=== PATIENT | male | born 1950 | race Caucasian/White ===

== ENCOUNTER 2018-02-28 11:09 | Day surgery (SDC) | payer OTHER, SELFPAY ==
--- NOTE | 2018-02-28 | PATH_ITS ---
[facility] Accession Number: [id number] . 01 Material submitted: . SIGMOID COLON POLYPS AT 18 . 02 Diagnosis: Sigmoid Colon Polyps at 18 cm, Biopsies: Serrated lesion, favor hyperplastic polyp. Additional levels through the block are noncontributory. MRV/03/04/2018 . 02 Electronically signed: . Anna Bettencourt MD, Pathologist NPI- [id number] . 01 Gross description: . Received in one formalin-filled container labeled with the patient's name and labeled sigmoid polyps at 18, are multiple extremely tiny less than 0.1 cm to 0.1 cm portions of tissue and mucoid material. The specimen is filtered, wrapped, and entirely submitted in one cassette. ([id number]) /FRR . 02 Pathologist provided ICD-10: K63.5 . 02 CPT . 575033 Performed at: 01 [facility] [address] [facility], [place], [place] [id number] MD Hermann Valencia MD Phone: [phone] Performed at: [address] [facility] [address] [place], [place] [id number] MD Ej Cervantes MD Phone: [phone]
[2018-02-28 11:37] VITALS: BP 148/65; PULSE 73; RESP 16; TEMP 36.9; O2SAT 97; BMI 28.8
[2018-02-28] MEDS: SODIUM CHLORIDE 0.9% 1,000 ML 200 ML IV (11:59)
--- NOTE | 2018-02-28 14:26 | PM.HP.1 ---
History of Present Illness Date Patient Seen: 02/28/18 Time Patient Seen: 14:26 Chief complaint: [id number] SCREENING COLONOSCOPY Narrative: 67-year-old male with personal history of colon polyps. Last colonoscopy was 5 years ago. He presents now for colorectal surveillance. On further history today he denies any recent gastrointestinal symptoms such as nausea, vomiting, abdominal pain, loss of appetite, unexplained weight loss, change in bowel habits, diarrhea, constipation, melena, hematochezia, or bright red blood per rectum. Patient History Medical History Cholecystitis with cholelithiasis (Acute) History of colon polyps (Acute) History of nephrolithiasis (Acute) Hypothyroidism (Acute) Sarcoidosis (Acute) Surgical History H/O lithotripsy (Acute) History of cholecystectomy (Acute) History of colonoscopy (Acute) Family & Social History Social History: household members spouse Meds Home Medications Medication Instructions Recorded Confirmed Type levothyroxine 50 mcg PO DAILY 02/28/18 02/28/18 History Allergies Allergy/AdvReac Type Severity Reaction Status Date / Time No Known Drug Allergies Allergy Verified 02/28/18 11:36 Review of Systems Review of Systems All systems reviewed & are unremarkable except as noted in HPI and below Exam Vital Signs (past 8 hours): - 02/28/18 11:37 Temperature 98.5 F Pulse Rate 73 Respiratory Rate 16 Blood Pressure 148/65 H Pulse Oximetry 97 Oxygen Delivery Method Room Air Narrative Exam Narrative: Well-nourished well-developed male in no acute distress. Alert oriented x3 Regular rate and rhythm. No wheezes Abdomen mildly obese but soft and nondistended. Nontender. No masses. Extremities no clubbing, cyanosis, or edema Objective Labs Labs: No recent laboratory or radiographic studies for review Assessment & Plan Plan: Assessment/Plan Narrative: 67-year-old male with personal history of colon polyps. He requires colorectal surveillance for such. Colonoscopy is currently recommended. Technical details of the procedure were explained. Risks, benefits, alternatives were discussed. Risks including but not limited to sedation, aspiration, bleeding, pain, missed lesion, incomplete examination, need for further radiographic studies, colonic perforation, need for major abdominal surgery, and all attendant risks of major surgery were explained in detail. All questions were answered to his satisfaction, and he voiced understanding. Consent was placed on the chart. We will proceed as above
--- NOTE | 2018-02-28 14:31 | PM.PREOP ---
Pre-operative Note Interval Note Pre-op Check: Yes History & Physical Reviewed by Physician, Yes Exam Performed and Yes History & Physical exam performed today by Physician Changes: No H&P completed within 30 days and has changed as indicated here:: Patient seen and examined today. History and physical examination documented and placed on the chart. Proceed with colonoscopy today as planned. ASA Class (for procedural sedation): I
[2018-02-28] MEDS: MIDAZOLAM 5 MG/5 ML VIAL IV (14:45)
[2018-02-28] MEDS: fentaNYL 250 MCG/5 ML INJ IV (14:46)
--- NOTE | 2018-02-28 14:57 | PM.OP.ENDO ---
Operative Date/Time/Diagnoses Date of procedure: 02/28/18 Time of procedure: 14:58 Pre-op diagnosis: Personal history colon polyps Post-op diagnosis: other (Sigmoid polyp) Procedure & Clinicians Study performed: 1. Sedation per surgeon 2. Colonoscopy with cold forceps polypectomy Same procedure as scheduled: Yes Indications: 67-year-old male with personal history colon polyps. Last colonoscopy was 5 years ago. He presents now for surveillance. Colonoscopy is once again recommended. Surgeon: Brendan Corey Procedure Notes SCOAP/Timeout: Yes Procedure in detail: After obtaining informed consent, the patient was brought to the GI suite and placed in the left lateral decubitus position on the examination table. After placement of appropriate monitors, the patient was given incremental doses of Versed and Fentanyl until an appropriate level of sedation was achieved. A time out was held per SCOAP protocol. A digital rectal examination was performed and did not reveal any masses or obstructing lesions. The colonoscope was gently passed into the patient's anus and the entire colon navigated to the level of the cecum with minimal difficulty. Once in the cecum, the scope was withdrawn being sure to go before and beyond all mucosal folds and prominences and get an excellent examination. The findings are noted above. At the level of the rectal vault, the scope was retroflexed and the internal anal canal was examined. The scope was straightened and air aspirated from the colon. The instrument was removed from the patient's body and the procedure was concluded. The patient was allowed to awaken from sedation without difficulty and taken to the post-anesthesia care unit in good condition. 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 Discharge home 2. Await biopsy results Follow up: as needed Disposition: PACU
[2018-02-28 15:00] VITALS: BP 122/67; PULSE 64; RESP 14; TEMP 36.5; O2SAT 95
[2018-02-28 15:05] VITALS: BP 120/69; PULSE 63; RESP 16; TEMP 36.6; O2SAT 95
[2018-02-28 15:10] VITALS: BP 120/68; PULSE 67; RESP 16; TEMP 36.6; O2SAT 96
[2018-02-28 15:15] VITALS: BP 130/75; PULSE 75; RESP 14; TEMP 37.2; O2SAT 97
== END 2018-02-28 15:25 | disposition home or self-care (01) ==
PROVIDERS: Family Provider Internal Medicine; PCP Internal Medicine; Visit Provider Surgery
PROC: 0DJD8ZZ Inspection of Lower Intestinal Tract, Via Natural or Artificial Opening Endoscopic (ICD-10-PCS; CPT 45378; principal; 2018-02-28 13:00)
DX: Z86.010 Personal history of colon polyps (principal); E03.9 Hypothyroidism, unspecified; D12.5 Benign neoplasm of sigmoid colon
CPT/HCPCS: 45380; 99152; 99153; J2250; J3010

== ENCOUNTER → 2019-12-29 21:22 | Outpatient (ROUT) | payer MEDICARE, SELFPAY ==
[2019-12-29 21:59] LABS: Hematocrit 45.6 % (41-53); Hemoglobin 15.6 g/dL (13.5-17.5); Mean Corpuscular HGB Conc 34.2 % (30-36); Mean Corpuscular Volume 96.5 fL (80-100); Platelet Count 93 X10^3/uL (150-400); Red Blood Cell Count 4.73 X10^6/uL (4.5-5.9); Red Cell Distribution Width 13.7 % (11.6-14.8); White Blood Cell Count 4.5 X10^3/uL (4.5-11.0)
[2019-12-29 22:50] LABS: TSH w/ Reflex to FT4 3.63 uIU/mL (0.47-4.68)
[2019-12-30 04:36] LABS: Alanine Aminotransferase 32 IU/L (<50); Albumin 3.6 g/dL (3.5-5.0); Alkaline Phosphatase 78 U/L (38-126); Aspartate Aminotransferase 48 IU/L (17-59); BUN Creatinine Ratio 19.3 (6-22); Bilirubin Total 1.8 mg/dL (0.2-1.3); Bilirubin Unconjugated 1.4 mg/dL (0.0-1.1); Blood Urea Nitrogen 16 mg/dL (9-20); Calcium 8.5 mg/dL (8.4-10.2); Carbon Dioxide 31 mmol/L (22-32); Chloride 102 mmol/L (98-107); Cholesterol 147 mg/dL (140-199); Estimated Glomerular Filt Rate > 60.0 mL/min (>60); Globulin 3.7 g/dL (1.7-4.1); Glucose 94 mg/dL (80-110); HDL Cholesterol 55 mg/dL (40-60); HEMOLYSIS < 15 (0-50); LDL Cholesterol Calculated 65 mg/dL (<100); Potassium 3.9 mmol/L (3.4-5.1); Sodium 138 mmol/L (137-145); Total Protein 7.3 g/dL (6.3-8.2); Triglycerides 134 mg/dL (35-150)
[2019-12-30 05:06] LABS: Prostate Specific Antigen 0.491 ng/mL (0.10-4.00)
== END ==
PROVIDERS: Family Provider Internal Medicine; PCP Internal Medicine; Visit Provider Internal Medicine
DX: Z00.00 Encounter for general adult medical examination without abnormal findings (principal); K74.69 Other cirrhosis of liver; N52.9 Male erectile dysfunction, unspecified; E03.9 Hypothyroidism, unspecified; I10 Essential (primary) hypertension; E78.2 Mixed hyperlipidemia
CPT/HCPCS: 80048; 80061; 80076; 84153; 84443; 85027

== ENCOUNTER → 2020-07-13 20:22 | Outpatient (ROUT) | payer MEDICARE, SELFPAY ==
[2020-07-13 20:32] LABS: Add Manual Diff / Slide Review NO; Basophils Absolute Auto 0 /uL (0-100); Basophils Percent Auto 0.8 % (0-2); Eosinophils Absolute Auto 300 /uL (0-450); Hematocrit 46.1 % (41-53); Hemoglobin 15.5 g/dL (13.5-17.5); Lymphocytes Absolute Auto 1200 /uL (1100-4500); Lymphocytes Percent Auto 30.1 % (25-40); Mean Corpuscular HGB Conc 33.7 % (30-36); Mean Corpuscular Hemoglobin 32.3 PG (26-34); Mean Corpuscular Volume 95.8 fL (80-100); Monocytes Absolute Auto 600 /uL (0-900); Monocytes Percent Auto 14.6 % (3-14); Neutrophils Absolute Auto 1900 /uL (1500-7000); Neutrophils Percent Auto 46.5 % (50-75); Platelet Count 98 X10^3/uL (150-400); Red Blood Cell Count 4.81 X10^6/uL (4.5-5.9)
[2020-07-13 20:41] LABS: INR 1.2 (0.9-1.3); Prothrombin Time 13.8 SECONDS (10.1-12.7)
[2020-07-13 20:44] LABS: PTT Partial Thromboplastin Tim 35 SECONDS (26.4-36.2)
[2020-07-13 20:45] LABS: Alanine Aminotransferase 33 IU/L (<50); Albumin 3.6 g/dL (3.5-5.0); Albumin Globulin Ratio 1.1 (1.0-2.8); Alkaline Phosphatase 94 U/L (38-126); Aspartate Aminotransferase 48 IU/L (17-59); BUN Creatinine Ratio 16.1 (6-22); Bilirubin Total 1.4 mg/dL (0.2-1.3); Blood Urea Nitrogen 14 mg/dL (9-20); Calcium 8.5 mg/dL (8.4-10.2); Carbon Dioxide 34 mmol/L (22-32); Chloride 100 mmol/L (98-107); Cholesterol 137 mg/dL (140-199); Estimated Glomerular Filt Rate > 60.0 mL/min (>60); Globulin 3.4 g/dL (1.7-4.1); Glucose 97 mg/dL (80-110); HDL Cholesterol 51 mg/dL (40-60); HEMOLYSIS < 15 (0-50); LDL Cholesterol Calculated 63 mg/dL (<100); Potassium 3.4 mmol/L (3.4-5.1); Sodium 139 mmol/L (137-145); Triglycerides 113 mg/dL (35-150)
== END ==
PROVIDERS: Family Provider Internal Medicine; PCP Internal Medicine; Visit Provider Internal Medicine
DX: K74.69 Other cirrhosis of liver (principal); E03.9 Hypothyroidism, unspecified; E78.2 Mixed hyperlipidemia
CPT/HCPCS: 80053; 80061; 84443; 85025; 85610; 85730

== ENCOUNTER → 2021-06-27 14:32 | Outpatient (CLI) | payer MEDICARE, SELFPAY ==
--- NOTE | 2021-06-27 14:35 | DI.ECHO.S_ITS ---
[facility] [facility]---------+ [facility] +---------+ : : [address] : : : : [id number] : : : : Phone: [phone]+ Echocardiogram Report + + :Name: CORRINE MENENDEZ Study Date: 06/27/2021 Height: 68 in : :[facility] ReadingLocation: Weight: 230 lb : : Gender: Male BSA: 2.2 m2 : :: 1950 Age: 70 yrs BP: 145/82 mmHg: :Reason For Study: AORTIC STENOSIS : :Ordering Physician: PEPE, : :TAMIKO Performed By: Cayla Palmer : :Referring: TAMIKO CANTU : + + Interpretation Summary 1) Normal left ventricular thickness, size, wall motion, and systolic function (EF 60-65%). 2) Normal right ventricular size and function. 3) Mild aortic stenosis present (valve area 1.5cm2, mean gradient 17mmHg, severity ratio 0.46). 4) Compared to the Echo done 10/16/2016, no significant change. Procedure: A two-dimensional transthoracic echocardiogram with color flow and Doppler was performed. The study quality was technically adequate. Comparison is made with the echocardiogram of 10/16/2016. The patient was in sinus rhythm with heart rates between 48-56 bpm during the exam. Left Ventricle: The left ventricle is normal in size and wall thickness. The ejection fraction is estimated to be 60-65%. Left ventricular systolic function appears normal without focal wall motion abnormalities. Right Ventricle: The right ventricle is normal in size and function. Atria: The left atrial size is normal. Right atrial size is normal. There is no Doppler evidence for an interatrial shunt. Mitral Valve: The mitral valve is normal in structure and function. There is mild mitral annular calcification. There is trace mitral regurgitation. Aortic Valve: There is moderate aortic valve sclerosis. There is mild aortic stenosis. The peak aortic velocity is 2.8 m/sec. The aortic valve mean gradient is 17 mmHg. The calculated aortic valve area is 1.5 cm2. No aortic regurgitation is present. Tricuspid Valve: The tricuspid valve is normal in structure and function. There is mild tricuspid regurgitation. Pulmonic Valve: The pulmonic valve is not well seen, but is grossly normal. There is no pulmonic valvular regurgitation. Great Vessels: The aortic root is normal size. The ascending aorta is at the upper limits of normal in size. The inferior vena cava was not well visualized. Pericardium/ Pleura There is no pericardial effusion. There is no pleural effusion. MMode/2D Measurements & Calculations LVIDd: 4.0 cm LVOT diam: 2.1 cm LVIDs: 2.6 cm Ao root diam: 3.3 cm FS: 35.6 % asc Aorta Diam: 3.7 cm IVSd: 1.1 cm LVPWd: 0.96 cm LV cardoza. diameter/BSA (cm/m^2): 1.8 LV sys. diameter/BSA (cm/m^2): 1.2 LA A2 area: 21.2 cm2 RA long axis: 5.1 cm LA A4 area: 19.4 cm2 RA area: 17.6 cm2 LA length (vol): 5.5 cm RA vol: 52.1 ml LA vol: 63.6 ml RA : 24.0 ml/m2 LA vol index: 29.3 ml/m2 RVD1 (basal): 3.9 cm TAPSE: 2.0 cm Doppler Measurements & Calculations Ao V2 max: 278.2 cm/sec LVOT Max Tima: 116.8 cm/sec Ao V2 mean: 189.6 cm/sec LV V1 max P.5 mmHg Ao max P.6 mmHg LV V1 VTI: 29.5 cm Ao mean P.1 mmHg LEV(I,D): 1.6 cm2 Ao V2 VTI: 63.9 cm LEV(V,D): 1.5 cm2 sev ratio: 0.46 LEV indexed to BSA (cm^2/m^2): 0.75 MV E max tima: 78.8 cm/sec TR max tima: 189.6 cm/sec MV A max tima: 87.2 cm/sec TR max P.4 mmHg MV E/A: 0.90 PA V2 max: 110.3 cm/sec Med Peak E' Tima: 5.8 cm/sec PA V2 mean: 72.7 cm/sec E/E' med: 13.7 PA mean P.5 mmHg Lat Peak E' Tima: 7.7 cm/sec PA pr(Accel): 24.2 mmHg E/E' lat: 10.2 E/e' average: 11.9 MV dec time: 0.35 sec SV(LVOT): 103.6 ml Reading Physician:05:04 PM
== END ==
PROVIDERS: Family Provider Internal Medicine; PCP Student in an Organized Health Care Education/Training Program; Referring Provider Internal Medicine; Visit Provider Internal Medicine
DX: I08.2 Rheumatic disorders of both aortic and tricuspid valves
CPT/HCPCS: 93306

== ENCOUNTER → 2022-03-17 12:43 | Outpatient (CLI) | payer MEDICARE, SELFPAY ==
[2022-03-17 13:19] LABS: Hematocrit 42.7 % (41-53); Hemoglobin 14.6 g/dL (13.5-17.5); Mean Corpuscular HGB Conc 34.2 % (30-36); Mean Corpuscular Hemoglobin 32.2 PG (26-34); Platelet Count 109 X10^3/uL (150-400); Red Blood Cell Count 4.54 X10^6/uL (4.5-5.9); Red Cell Distribution Width 14.5 % (11.6-14.8); White Blood Cell Count 4.1 X10^3/uL (4.5-11.0)
[2022-03-17 13:31] LABS: Alanine Aminotransferase 29 IU/L (<50); Albumin 3.4 g/dL (3.5-5.0); Albumin Globulin Ratio 0.9 (1.0-2.8); Alkaline Phosphatase 96 U/L (38-126); Aspartate Aminotransferase 42 IU/L (17-59); BUN Creatinine Ratio 15.5 (6-22); Bilirubin Total 1.6 mg/dL (0.2-1.3); Blood Urea Nitrogen 13 mg/dL (9-20); Calcium 8.1 mg/dL (8.4-10.2); Carbon Dioxide 31 mmol/L (22-32); Chloride 102 mmol/L (98-107); Cholesterol 135 mg/dL (140-199); Estimated Glomerular Filt Rate > 60 mL/min (>60); Glucose 139 mg/dL (80-110); HDL Cholesterol 53 mg/dL (40-60); HEMOLYSIS < 15 (0-50); LDL Cholesterol Calculated 59 mg/dL (<100); Potassium 3.6 mmol/L (3.4-5.1); Sodium 138 mmol/L (137-145); Total Protein 7.4 g/dL (6.3-8.2); Triglycerides 114 mg/dL (35-150)
[2022-03-17 14:02] LABS: Prostate Specific Antigen 0.547 ng/mL (0.10-4.00)
[2022-03-17 14:13] LABS: TSH w/ Reflex to FT4 2.28 uIU/mL (0.47-4.68)
== END ==
PROVIDERS: Family Provider Internal Medicine; PCP Internal Medicine; Referring Provider Internal Medicine; Visit Provider Internal Medicine
DX: D69.6 Thrombocytopenia, unspecified (principal); Z86.39 Personal history of other endocrine, nutritional and metabolic disease; K76.6 Portal hypertension; D86.9 Sarcoidosis, unspecified; I85.10 Secondary esophageal varices without bleeding
CPT/HCPCS: 36415; 80053; 80061; 84153; 84443; 85027

== ENCOUNTER → 2022-12-06 10:43 | Outpatient (CLI) | payer MEDICARE, SELFPAY ==
--- NOTE | 2022-12-06 10:44 | DI.RAD.S_ITS ---
PROCEDURE: XR DEXA AXIAL SKELETON INDICATIONS: hyperparathyroidism, osteoporosis COMPARISON: None. FINDINGS: This blank DEXA report has been sent in error by the PACS system. The correct and complete report will be forthcoming in 1-2 days. Thank you for your patience and understanding. Dictated by: Robinson Galvez M.D. on 12/06/2022 at 11:58 Approved by: Robinson Galvez M.D. on 12/06/2022 at 11:58
--- NOTE | 2022-12-06 10:51 | DI.DEXA.S_ITS ---
Bone Density Report Name: CORRINE MENENDEZ Age: 72 Sex: Male Ethnicity: White Date of : 1950 Indication: screening for osteoporosis; Referring Provider: TAMIKO CANTU Study: Bone densitometry was performed. Exam Date: December 06, 2022 Accession number: [id number] Bone Density: Region BMD T-score Z-score Classification AP Spine(L1-L4) 1.107 0.5 1.1 Normal Femoral Neck (Left) 0.623 -2.0 -1.0 Osteopenia Total Hip (Left) 0.864 -0.6 -0.3 Normal Femoral Neck (Right) 0.462 -3.5 -2.1 Osteoporosis Total Hip (Right) 0.849 -0.8 -0.4 Normal Total Hip Mean 0.856 -0.7 -0.4 Normal World Health Organization criteria for BMD impression classify patients as: Normal (T-score at or above -1.0), Osteopenia (T-score between -1.0 and -2.5), or Osteoporosis (T-score at or below -2.5). 10-year Fracture Risk: FRAX not reported because: Some T-score for Spine Total or Hip Total or Femoral Neck at or below -2.5 Impression: The patient has osteoporosis, based on the Right Femoral Neck T-score. Discussion: HIGH RISK OF FRACTURE. BONE DENSITY IS UNDESIRABLY LOW AT ONE OR MORE SKELETAL SITES, CONSISTENT WITH OSTEOPOROSIS. ALSO, BONE DENSITY IS LOWER THAN EXPECTED FOR AGE, SEX AND RACE AT ONE OR MORE SKELETAL SITES; RECOMMEND A DILIGENT SEARCH FOR SECONDARY CAUSES OF BONE LOSS. This patient's lowest T-score meets the World Health Organization's (WHO) criteria for osteoporosis at one or more sites (T-score -2.5 or below). In untreated patients, the risk of osteoporotic fracture increases approximately two-fold for each 1.0 SD decrease in T-score. Low bone density is not the only risk factor for fracture; also consider factors such as patient's age, frailty or poor health, risk of falling, risk of injury, previous osteoporotic fracture, family history of osteoporosis, cigarette smoking, low body weight, etc. Not everyone with low bone mineral density has osteoporosis; osteomalacia and other metabolic bone disorders should also be considered. Patients who have osteoporosis should be evaluated for specific diseases and conditions (secondary causes) that may cause or contribute to bone loss. The National Osteoporosis Foundation (NOF) recommends pharmacologic intervention for men with BMD at this level (a T-score of -2.5 or below). Also, this patient's bone mineral density is below the range considered normal for healthy age-, sex and race-matched controls at least one site (Z-score -2.0 or below). This warrants careful evaluation for diseases and conditions that may contribute to accelerated bone loss. The patient should follow a healthful lifestyle (good nutrition with adequate calcium and vitamin D, and appropriate weight-bearing exercise). Follow-Up: Consider repeating this study in 2 years to reassess this patient's status, or sooner if there is some new clinical indication. Reported by: KATHARINA SCHAEFFER M.D. on 12/06/2022 11:02:00 AM.
== END ==
PROVIDERS: Family Provider Internal Medicine; PCP Internal Medicine; Referring Provider Internal Medicine; Visit Provider Internal Medicine
DX: M81.0 Age-related osteoporosis without current pathological fracture (principal); Z86.39 Personal history of other endocrine, nutritional and metabolic disease; Z13.820 Encounter for screening for osteoporosis
CPT/HCPCS: 77080

== ENCOUNTER → 2022-12-19 14:45 | Outpatient (CLI) | payer MEDICARE, SELFPAY ==
[2022-12-19 16:03] LABS: Alanine Aminotransferase 37 IU/L (<50); Albumin 3.6 g/dL (3.5-5.0); Alkaline Phosphatase 87 U/L (38-126); Aspartate Aminotransferase 45 IU/L (17-59); BUN Creatinine Ratio 14.8 (6-22); Bilirubin Total 1.8 mg/dL (0.2-1.3); Blood Urea Nitrogen 13 mg/dL (9-20); Carbon Dioxide 35 mmol/L (22-32); Chloride 99 mmol/L (98-107); Estimated Glomerular Filt Rate > 60 mL/min (>60); Globulin 3.7 g/dL (1.7-4.1); Glucose 139 mg/dL (80-110); HEMOLYSIS < 15 (0-50); Potassium 3.7 mmol/L (3.4-5.1); Sodium 137 mmol/L (137-145); Total Protein 7.3 g/dL (6.3-8.2)
[2022-12-21 09:09] LABS: Calcium 8.2 mg/dL (8.6-10.2); Parathyroid Hormone, Intact 55 pg/mL (15-65)
[2022-12-21 17:42] LABS: Vitamin D 25 Hydroxy (D3) 16.8 ng/mL (30.0-100.0)
== END ==
PROVIDERS: Family Provider Internal Medicine; PCP Internal Medicine; Referring Provider Internal Medicine; Visit Provider Internal Medicine
DX: E03.9 Hypothyroidism, unspecified (principal); M81.8 Other osteoporosis without current pathological fracture; Z86.39 Personal history of other endocrine, nutritional and metabolic disease
CPT/HCPCS: 36415; 80053; 82306; 82310; 83970; 84443

== ENCOUNTER → 2023-05-24 09:59 | Outpatient (CLI) | payer OTHER, SELFPAY ==
[2023-05-24 10:21] LABS: Hematocrit 43.6 % (41-53); Hemoglobin 14.8 g/dL (13.5-17.5); Mean Corpuscular HGB Conc 33.9 % (30-36); Mean Corpuscular Hemoglobin 32.8 PG (26-34); Mean Corpuscular Volume 96.8 fL (80-100); Platelet Count 99 X10^3/uL (150-400); Red Blood Cell Count 4.51 X10^6/uL (4.5-5.9); Red Cell Distribution Width 14.6 % (11.6-14.8); White Blood Cell Count 3.8 X10^3/uL (4.5-11.0)
[2023-05-24 11:14] LABS: HEMOLYSIS < 15 (0-50)
[2023-05-24 11:21] LABS: Alanine Aminotransferase 43 IU/L (<50); Albumin 3.3 g/dL (3.5-5.0); Albumin Globulin Ratio 0.8 (1.0-2.8); Alkaline Phosphatase 122 U/L (38-126); Aspartate Aminotransferase 66 IU/L (17-59); BUN Creatinine Ratio 11.8 (6-22); Bilirubin Total 1.7 mg/dL (0.2-1.3); Blood Urea Nitrogen 9 mg/dL (9-20); Calcium 8.8 mg/dL (8.4-10.2); Carbon Dioxide 30 mmol/L (22-32); Chloride 104 mmol/L (98-107); Cholesterol 138 mg/dL (140-199); Estimated Glomerular Filt Rate > 60 mL/min (>60); Globulin 4.4 g/dL (1.7-4.1); Glucose 90 mg/dL (80-110); HDL Cholesterol 58 mg/dL (40-60); LDL Cholesterol Calculated 63 mg/dL (<100); Sodium 139 mmol/L (137-145); Total Protein 7.7 g/dL (6.3-8.2); Triglycerides 85 mg/dL (35-150)
[2023-05-24 11:25] LABS: TSH w/ Reflex to FT4 3.68 uIU/mL (0.47-4.68)
[2023-05-24 15:33] LABS: Prostate Specific Antigen 0.505 ng/mL (0.10-4.00)
== END ==
PROVIDERS: Family Provider Internal Medicine; PCP Internal Medicine; Referring Provider Internal Medicine; Visit Provider Internal Medicine
DX: E03.9 Hypothyroidism, unspecified (principal); E78.2 Mixed hyperlipidemia; K74.60 Unspecified cirrhosis of liver; R18.8 Other ascites
CPT/HCPCS: 36415; 80053; 80061; 84153; 84443; 85027

== ENCOUNTER → 2023-06-11 11:56 | Outpatient (CLI) | payer MEDICARE, SELFPAY ==
--- NOTE | 2023-06-11 11:57 | DI.ECHO.S_ITS ---
[facility] + [facility] +---------+ : : [address] : : : : [address] : : : : [place], : : : : [place] [address] : : : : Phone: [phone] + [facility] Echocardiogram Report + + :Name: CORRINE MENENDEZ Study Date: 06/11/2023 Height: 69 in : :[facility] ReadingLocation: Weight: 210 lb : : Gender: Male BSA: 2.1 m2 : :: 1950 Age: 72 yrs BP: 142/68 mmHg: :Reason For Study: AORTIC STENOSIS : :Ordering Physician: PEPE, : :TAMIKO Performed By: Charbel Stevens : :Referring: TAMIKO CANTU : + + Interpretation Summary Normal left ventricle size with ejection fraction 55-60%. Diastolic parameters suggest a pseudonormalization pattern, consistent with probable elevated filling pressures. Moderate aortic stenosis. The peak aortic velocity is 3.4 m/sec. The peak aortic velocity on the previous exam was 2.8 m/sec. Comparison is made with the echocardiogram of 06/27/21, aortic stenosis has progressed. Procedure: A two-dimensional transthoracic echocardiogram with color flow and Doppler was performed. The study quality was technically difficult. Comparison is made with the echocardiogram of 06/27/21. Left Ventricle: The left ventricle is normal in size and wall thickness. The ejection fraction is estimated to be 55-60%. There are no focal wall motion abnormalities. Diastolic parameters suggest a pseudonormalization pattern, consistent with probable elevated filling pressures. Right Ventricle: The right ventricle is normal in size and function. Atria: The left atrial size is normal. The right atrium is normal in size. Mitral Valve: The mitral valve is normal in structure and function. There is no mitral valve stenosis. There is trace mitral regurgitation. Aortic Valve: The aortic valve is trileaflet. The aortic valve is moderately calcified. There is moderate aortic stenosis. The peak aortic velocity is 3.4 m/sec. The peak aortic velocity on the previous exam was 2.8 m/sec. The aortic valve mean gradient is 28.2 mmHg. No aortic regurgitation is present. Tricuspid Valve: The tricuspid valve is normal in structure and function. There is no tricuspid stenosis. There is a trace or physiologic amount of tricuspid regurgitation. Pulmonic Valve: The pulmonic valve is not well visualized. There is no pulmonic valvular stenosis. There is no pulmonic valvular regurgitation. Great Vessels: The aortic root is normal size. The aortic arch could not be visualized. The inferior vena cava was not well visualized. Pericardium/ Pleura There is no pericardial effusion. There is no pleural effusion. MMode/2D Measurements & Calculations LVIDd: 5.1 cm LVOT diam: 2.0 cm LVIDs: 3.3 cm Ao root diam: 3.0 cm IVSd: 1.0 cm LVPWd: 1.00 cm LV cardoza. diameter/BSA (cm/m^2): 2.4 LV sys. diameter/BSA (cm/m^2): 1.6 FS: 34.6 % LA A2 area: 20.8 cm2 RA long axis: 4.0 cm LA A4 area: 18.8 cm2 RA area: 13.7 cm2 LA length (vol): 4.9 cm RA vol: 40.3 ml LA vol: 67.1 ml RA : 19.1 ml/m2 LA vol index: 31.8 ml/m2 RVD1 (basal): 4.2 cm RVD2 (mid): 3.2 cm TAPSE: 3.0 cm Doppler Measurements & Calculations Ao V2 max: 340.1 cm/sec LVOT Max Tima: 103.3 cm/sec Ao V2 mean: 252.5 cm/sec LV V1 max P.1 mmHg Ao V2 VTI: 106.7 cm LV V1 VTI: 34.0 cm Ao max P.8 mmHg Ao mean P.2 mmHg LEV(I,D): 0.98 cm2 MV E max tima: 96.4 cm/sec LEV(V,D): 0.94 cm2 MV A max tima: 74.2 cm/sec LEV indexed to BSA (cm^2/m^2): 0.47 MV E/A: 1.3 sev ratio: 0.32 Med Peak E' Tima: 5.7 cm/sec E/E' med: 16.9 Lat Peak E' Tima: 8.1 cm/sec E/E' lat: 11.9 E/e' average: 14.4 MV dec time: 0.29 sec TR max tima: 257.6 cm/sec TR max P.5 mmHg PA V2 max: 111.7 cm/sec SV(LVOT): 104.9 ml PA V2 mean: 74.4 cm/sec PA mean P.5 mmHg PA pr(Accel): 44.7 mmHg Electronically signed by: Kasie Olguin on Reading Physician:06/12/2023 06:52 AM
== END ==
PROVIDERS: Family Provider Internal Medicine; PCP Internal Medicine; Referring Provider Internal Medicine; Visit Provider Internal Medicine
DX: I35.0 Nonrheumatic aortic (valve) stenosis (principal)
CPT/HCPCS: 93306